=== PATIENT | female | born 1950 | race Caucasian/White ===

== ENCOUNTER 2017-04-09 10:06 | Observation (INO) ==
--- NOTE | 2017-04-09 10:26 | Emergency Department Note ---
Disposition Clinical Impression: Acute kidney injury Community acquired pneumonia Qualifiers: Laterality: unspecified laterality Qualified Code(s): J18.9 - Pneumonia, unspecified organism Disposition: Admitted As Inpatient Condition: Fair Referrals: NONE,PCP [Non-Partnered Physician] - Forms: ED Satisfaction Letter Time of Disposition: 13:10 General Adult HPI - General Chief complaint: ED Back Pain/Injury Stated complaint: back pain, pain with inspiration Time Seen by Provider: 04/09/17 10:13 Source: patient Limitations: no limitations Nursing Notes Reviewed: Yes Vital Signs Reviewed: Yes - History of Present Illness HPI Narrative: Nontoxic-appearing 67-year-old female presents for evaluation of "back pain". Patient states that she has endured 3 days of gradually worsening pain in the thoracic region that is made worse with expiration, inhalation, and movement. She denies any associated chest pain, shortness of breath, cough, hemoptysis, fevers, chills, rash, nausea, vomiting, abdominal pain, or diaphoresis. She denies any noticeable increased swelling of the lower extremities recently. She denies any known injury that could account for this pain. She rates her pain a 4 out of 10 on a 10 point scale and describes it as sharp in nature. Onset (ago): day(s) (3) Location: back Radiation: non-radiation Pain Scale: 4 Improves with: nothing Worsens with: movement, other (inspiration/exhalation) Associated symptoms: Denies: chest pain, cough, diaphoresis, fever/chills, nausea/vomiting, shortness of breath Treatments Prior to Arrival: none - Related Data Previous Rx's Medication Instructions Recorded Doxycycline 100 mg PO BID #20 capsule 07/22/15 Mupirocin [Bactroban Oint] 1 appl NS BID #1 tube 07/22/15 Allergies Allergy/AdvReac Type Severity Reaction Status Date / Time cephalexin [From Keflex] Allergy Rash Verified 04/09/17 10:12 Penicillins Allergy Rash Verified 04/09/17 10:12 Sulfa (Sulfonamide Allergy Rash Verified 04/09/17 10:12 Antibiotics) All systems ED: reviewed and negative except as stated. Constitutional: Denies: fever, chills, weakness, weight change Eyes: Denies: eye pain, eye discharge, vision change ENT ED: Denies: ear pain, throat pain, dental pain, hearing loss, epistaxis, congestion, dysphagia Cardiovascular: Denies: chest pain, palpitations, dyspnea on exertion, edema, syncope Respiratory: Denies: cough, dyspnea, wheezes, hemoptysis, stridor Gastrointestinal: Denies: abdominal pain, nausea, vomiting, diarrhea, constipation, hematemesis, melena, hematochezia Genitourinary: Denies: dysuria, frequency, hematuria, discharge Musculoskeletal: Reports: as per HPI, back pain (Made worse with breathing in and breathing out). Denies: neck pain, arthralgia, myalgia Integumentary: Denies: rash, abrasion, lesions Neurological: Denies: headache, weakness, numbness, paresthesias, confusion, abnormal gait, vertigo Psychiatric: Denies: anxiety, depression, suicidal thoughts, homicidal thoughts , auditory hallucinations, visual hallucinations Endocrine: Denies: fatigue Hematological/Lymphatic: Denies: easy bleeding, easy bruising Allergic/Immunologic: Denies: facial swelling, urticaria Past Medical History - Past Medical History Attestation: Yes The following information was validated with the patient. Source: patient, nursing notes reviewed Medical history: Reports: diabetes, hyperlipidemia, hypertension Psychiatric history: Reports: anxiety, depression INDUSTRIAL SAFETY ENGINEER history: Reports: no INDUSTRIAL SAFETY ENGINEER history - Social History Smoking Status: Never smoker Smokeless Tobacco Status: No Alcohol use: Reports: none Drug use: Reports: none Physical Exam - General Limitations: no limitations General appearance: alert, in no apparent distress - Head Head exam: atraumatic, normocephalic, normal inspection - Eye Eye exam: Present: normal appearance, PERRL, EOMI. Absent: nystagmus - ENT ENT exam: mucous membranes moist - Neck Neck exam: Present: normal inspection, full ROM, trachea midline - Chest Chest inspection: Present: normal inspection, symmetric chest wall rise. Absent : rash - Respiratory Respiratory exam: Present: normal lung sounds bilaterally. Absent: respiratory distress, wheezes, stridor, accessory muscle use, prolonged expiratory phase - Cardiovascular Cardiovascular exam: Present: regular rate, normal rhythm, normal heart sounds - Abdominal Exam Abdominal exam: Present: soft, Non-Tender, normal bowel sounds. Absent: mass, pulsatile mass - Extremities Exam Extremities exam: Present: normal inspection, full ROM. Absent: tenderness, pedal edema - Back Exam Back exam: Present: normal inspection, full ROM. Absent: tenderness, paraspinal tenderness, vertebral tenderness - Neurological Exam Neurological exam: Present: alert, oriented X3 - Psychiatric Psychiatric exam: Present: normal affect, normal mood - Skin Skin exam: Present: warm, dry, intact, normal color Course Course Narrative: 1110: I discussed this patient's case with radiology regarding her GFR and creatinine levels. The on-call radiologist states that he approves of the use of IV contrast as long as there is IV fluid hydration. I have discussed this patient's case with Dr. Serrano. Dr. Serrano has had a [id number] evaluation with patient and recommends admission to the hospitalist service for further treatment of pneumonia and her acute kidney injury. 1315: I spoke with Dr. Lewis of the hospitalist service. Dr. Lewis has accepted the patient for admission to the hospital service. Vital Signs Temperature 97.5 F L 04/09/17 10:10 Pulse Rate 111 04/09/17 10:10 Respiratory Rate 18 04/09/17 10:10 Blood Pressure 112/62 04/09/17 10:10 O2 Sat by Pulse Oximetry 96 04/09/17 10:10 Temperature 97.5 F L 04/09/17 10:10 Pulse Rate 112 04/09/17 11:15 Respiratory Rate 15 04/09/17 11:15 Blood Pressure 111/62 04/09/17 11:15 O2 Sat by Pulse Oximetry 97 04/09/17 11:15 Oxygen Delivery Oxygen Delivery Nasal Cannula Medical Decision Making - Medical Records Medical records reviewed: Yes I reviewed the patient's medical records. - Lab Data Lab results reviewed: Yes I reviewed the patient's lab results. Lab results narrative: Laboratory Last Values WBC 12.9 K/mcL (4.3-11.1) H 04/09/17 10:40 RBC 3.77 M/mcL (3.82-4.97) L 04/09/17 10:40 Hgb 10.9 g/dL (11.5-15.4) L 04/09/17 10:40 Hct 33.9 % (35.3-44.9) L 04/09/17 10:40 MCV 89.9 fL (83.0-100.0) 04/09/17 10:40 MCH 28.9 pg (28.0-33.3) 04/09/17 10:40 MCHC 32.2 g/dL (31.6-35.5) 04/09/17 10:40 RDW 12.8 % (11.5-14.5) 04/09/17 10:40 Plt Count 300 K/mcL (140-400) 04/09/17 10:40 MPV 9.4 fL (9.4-12.4) 04/09/17 10:40 Immature Gran % 0.4 % (0-4) 04/09/17 10:40 Seg Neutrophils % 84.3 % 04/09/17 10:40 Lymphocytes % 5.0 % 04/09/17 10:40 Monocytes % 9.9 % 04/09/17 10:40 Eosinophils % 0.2 % 04/09/17 10:40 Basophils % 0.2 % 04/09/17 10:40 Neutrophils # 10.9 K/mcL (1.6-8.9) H 04/09/17 10:40 Lymphocytes # 0.6 K/mcL (0.6-4.6) 04/09/17 10:40 Monocytes # 1.3 K/mcL (0.0-1.3) 04/09/17 10:40 Eosinophils # 0.0 K/mcL (0.0-0.6) 04/09/17 10:40 Basophils # 0.0 K/mcL (0.0-0.2) 04/09/17 10:40 PT 14.0 Seconds (9.4-12.1) H 04/09/17 10:40 INR 1.3 04/09/17 10:40 APTT 27.5 Seconds (26.0-36.0) 04/09/17 10:40 D-Dimer 2152 ng/mLFEU (0-500) H 04/09/17 10:40 Sodium 134 mEq/L (136-145) L 04/09/17 10:40 Potassium 4.1 mEq/L (3.5-4.5) 04/09/17 10:40 Chloride 96 mEq/L (98-109) L 04/09/17 10:40 Carbon Dioxide 28 mEq/L (19-29) 04/09/17 10:40 BUN 18 mg/dL (7-20) 04/09/17 10:40 Creatinine 1.32 mg/dL (0.57-1.11) H 04/09/17 10:40 Est GFR ( Amer) 49 (> 60) L 04/09/17 10:40 Est GFR (Non-Af Amer) 40 (> 60) L 04/09/17 10:40 BUN/Creatinine Ratio 14 (6-26) 04/09/17 10:40 Glucose 231 mg/dL (70-99) H 04/09/17 10:40 Calculated Osmolality 287 (280-300) 04/09/17 10:40 Calcium 9.9 mg/dL (8.6-10.8) 04/09/17 10:40 Troponin I 0.02 ng/mL (0-0.03) 04/09/17 10:40 Result diagrams: 04/09/17 10:40 04/09/17 10:40 Lab Results 04/09/17 04/09/17 04/09/17 Range/Units 10:40 10:40 10:40 WBC 12.9 H (4.3-11.1) K/mcL RBC 3.77 L (3.82-4.97) M/mcL Hgb 10.9 L (11.5-15.4) g/dL Hct 33.9 L (35.3-44.9) % MCV 89.9 (83.0-100.0) fL MCH 28.9 (28.0-33.3) pg MCHC 32.2 (31.6-35.5) g/dL RDW 12.8 (11.5-14.5) % Plt Count 300 (140-400) K/mcL MPV 9.4 (9.4-12.4) fL Immature Gran % 0.4 (0-4) % Seg Neutrophils % 84.3 % Lymphocytes % 5.0 % Monocytes % 9.9 % Eosinophils % 0.2 % Basophils % 0.2 % Neutrophils # 10.9 H (1.6-8.9) K/mcL Lymphocytes # 0.6 (0.6-4.6) K/mcL Monocytes # 1.3 (0.0-1.3) K/mcL Eosinophils # 0.0 (0.0-0.6) K/mcL Basophils # 0.0 (0.0-0.2) K/mcL PT (9.4-12.1) Seconds INR APTT (26.0-36.0) Seconds D-Dimer (0-500) ng/mLFEU Sodium 134 L (136-145) mEq/L Potassium 4.1 (3.5-4.5) mEq/L Chloride 96 L (98-109) mEq/L Carbon Dioxide 28 (19-29) mEq/L BUN 18 (7-20) mg/dL Creatinine 1.32 H (0.57-1.11) mg/dL Est GFR ( Amer) 49 L (> 60) Est GFR (Non-Af Amer) 40 L (> 60) BUN/Creatinine Ratio 14 (6-26) Glucose 231 H (70-99) mg/dL Calculated Osmolality 287 (280-300) Calcium 9.9 (8.6-10.8) mg/dL Troponin I 0.02 (0-0.03) ng/mL 04/09/17 Range/Units 10:40 WBC (4.3-11.1) K/mcL RBC (3.82-4.97) M/mcL Hgb (11.5-15.4) g/dL Hct (35.3-44.9) % MCV (83.0-100.0) fL MCH (28.0-33.3) pg MCHC (31.6-35.5) g/dL RDW (11.5-14.5) % Plt Count (140-400) K/mcL MPV (9.4-12.4) fL Immature Gran % (0-4) % Seg Neutrophils % % Lymphocytes % % Monocytes % % Eosinophils % % Basophils % % Neutrophils # (1.6-8.9) K/mcL Lymphocytes # (0.6-4.6) K/mcL Monocytes # (0.0-1.3) K/mcL Eosinophils # (0.0-0.6) K/mcL Basophils # (0.0-0.2) K/mcL PT 14.0 H (9.4-12.1) Seconds INR 1.3 APTT 27.5 (26.0-36.0) Seconds D-Dimer 2152 H (0-500) ng/mLFEU Sodium (136-145) mEq/L Potassium (3.5-4.5) mEq/L Chloride (98-109) mEq/L Carbon Dioxide (19-29) mEq/L BUN (7-20) mg/dL Creatinine (0.57-1.11) mg/dL Est GFR ( Amer) (> 60) Est GFR (Non-Af Amer) (> 60) BUN/Creatinine Ratio (6-26) Glucose (70-99) mg/dL Calculated Osmolality (280-300) Calcium (8.6-10.8) mg/dL Troponin I (0-0.03) ng/mL - Radiology Data Radiology results reviewed: Yes I reviewed the patient's radiology results. Chest X-Ray 04/09/17 10:19 IMPRESSION: Mild left basilar segmental atelectasis versus pneumonia. D/ / Livan Dorman MD / Livan Dorman MD Interpreting Provider: Livan Dorman MD Lumbar Spine X-Ray 04/09/17 10:19 IMPRESSION: Mild scoliosis/spondylosis. D/ / Livan Dorman MD / Livan Dorman MD Interpreting Provider: Livan Dorman MD Thoracic Spine X-Ray 04/09/17 10:19 IMPRESSION: Moderate scoliosis/mid thoracic spondylosis. D/ / Livan Dorman MD / Livan Dorman MD Interpreting Provider: Livan Dorman MD Chest CTA 04/09/17 10:45 IMPRESSION: No CT evidence of pulmonary embolism. Trace bilateral pleural effusions as well as right middle lobe and bilateral lower lobe airspace disease, atelectasis and/or pneumonia. Mild mediastinal and right hilar adenopathy is likely reactive. Follow-up to complete resolution is recommended. Wall thickening of the mid intrathoracic esophagus is suspected. Correlation for acute inflammation is recommended. Neoplasm should be excluded. D/ / Pippa Mcwilliams Cha, MD / Pippa Mcwilliams Cha, MD Interpreting Provider: Pippa Mcwilliams Cha, MD - EKG Data EKG #1 EKG attestation: Yes I reviewed and interpreted this EKG. EKG results narrative: EKG reviewed by Dr. Serrano as well. EKG shows a sinus tachycardia with possible anterior [place], probably old, at a rate of 117 bpm. ER interval 161, QRS duration 90, QT/QTc is 310/380. EKG shows normal: sinus rhythm Rate: tachycardia [place]/QRS: normal
[2017-04-09 10:47] LABS: Basophils % 0.2 %; Eosinophils % 0.2 %; Hematocrit 33.9 % (35.3-44.9); Hemoglobin 10.9 g/dL (11.5-15.4); Immature Granulocytes % 0.4 % (0-4); Lymphocytes # 0.6 K/mcL (0.6-4.6); Mean Corpuscular HGB Conc 32.2 g/dL (31.6-35.5); Mean Corpuscular Hemoglobin 28.9 pg (28.0-33.3); Mean Corpuscular Volume 89.9 fL (83.0-100.0); Mean Platelet Volume 9.4 fL (9.4-12.4); Monocytes # 1.3 K/mcL (0.0-1.3); Monocytes % 9.9 %; Neutrophils # 10.9 K/mcL (1.6-8.9); Platelet Count 300 K/mcL (140-400); Red Blood Count 3.77 M/mcL (3.82-4.97); Red Cell Distribution Width 12.8 % (11.5-14.5); Segmented Neutrophils % 84.3 %
[2017-04-09 10:58] LABS: Calcium 9.9 mg/dL (8.6-10.8); Potassium 4.1 mEq/L (3.5-4.5)
[2017-04-09 11:00] LABS: INR 1.3
[2017-04-09 11:03] LABS: Activated Partial Thrombo Time 27.5 Seconds (26.0-36.0)
[2017-04-09] MEDS ORDERED: 0.9 % Sodium Chloride 1,000 ML IVC ONE (11:16)
[2017-04-09] MEDS ORDERED: Levofloxacin 500 MG/100 ML 500 MG/100 ML BAG IVPB ONE (13:12)
[2017-04-09] MEDS ORDERED: 0.9 % Sodium Chloride 1,000 ML IVC SCH (13:15)
[2017-04-09] MEDS ORDERED: Levofloxacin 750 MG/150 ML 750 MG/150 ML BAG IVPB ONE (13:19)
--- NOTE | 2017-04-09 13:22 | Emergency Department Note ---
Disposition Clinical Impression: Acute kidney injury Community acquired pneumonia Qualifiers: Laterality: unspecified laterality Qualified Code(s): J18.9 - Pneumonia, unspecified organism Disposition: Admitted As Inpatient Condition: Fair Referrals: NONE,PCP [Non-Partnered Physician] - Forms: ED Satisfaction Letter General Adult HPI - General Chief complaint: ED Back Pain/Injury Stated complaint: back pain, pain with inspiration Time Seen by Provider: 04/09/17 10:13 Source: patient Limitations: no limitations - History of Present Illness Location: back Pain Scale: 4 Improves with: nothing Worsens with: movement, other (inspiration/exhalation) Associated symptoms: Denies: chest pain, cough, diaphoresis, fever/chills, nausea/vomiting, shortness of breath Treatments Prior to Arrival: none - Related Data Previous Rx's Medication Instructions Recorded Doxycycline 100 mg PO BID #20 capsule 07/22/15 Mupirocin [Bactroban Oint] 1 appl NS BID #1 tube 07/22/15 Allergies Allergy/AdvReac Type Severity Reaction Status Date / Time cephalexin [From Keflex] Allergy Rash Verified 04/09/17 10:12 Penicillins Allergy Rash Verified 04/09/17 10:12 Sulfa (Sulfonamide Allergy Rash Verified 04/09/17 10:12 Antibiotics) Constitutional: Denies: fever, chills, weakness, weight change Eyes: Denies: eye pain, eye discharge, vision change ENT ED: Denies: ear pain, throat pain, dental pain, hearing loss, epistaxis, congestion, dysphagia Cardiovascular: Denies: chest pain, palpitations, dyspnea on exertion, edema, syncope Respiratory: Denies: cough, dyspnea, wheezes, hemoptysis, stridor Gastrointestinal: Denies: abdominal pain, nausea, vomiting, diarrhea, constipation, hematemesis, melena, hematochezia Genitourinary: Denies: dysuria, frequency, hematuria, discharge Musculoskeletal: Reports: as per HPI, back pain (Made worse with breathing in and breathing out). Denies: neck pain, arthralgia, myalgia Integumentary: Denies: rash, abrasion, lesions Neurological: Denies: headache, weakness, numbness, paresthesias, confusion, abnormal gait, vertigo Psychiatric: Denies: anxiety, depression, suicidal thoughts, homicidal thoughts , auditory hallucinations, visual hallucinations Endocrine: Denies: fatigue Hematological/Lymphatic: Denies: easy bleeding, easy bruising Allergic/Immunologic: Denies: facial swelling, urticaria Past Medical History - Past Medical History Medical history: Reports: diabetes, hyperlipidemia, hypertension Psychiatric history: Reports: anxiety, depression 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 history - Social History Smoking Status: Never smoker Smokeless Tobacco Status: No Alcohol use: Reports: none Drug use: Reports: none Physical Exam - General Limitations: no limitations General appearance: alert, in no apparent distress Course Vital Signs Temperature 97.5 F L 04/09/17 10:10 Pulse Rate 111 04/09/17 10:10 Respiratory Rate 18 04/09/17 10:10 Blood Pressure 112/62 04/09/17 10:10 O2 Sat by Pulse Oximetry 96 04/09/17 10:10 Temperature 97.5 F L 04/09/17 10:10 Pulse Rate 112 04/09/17 11:15 Respiratory Rate 15 04/09/17 11:15 Blood Pressure 111/62 04/09/17 11:15 O2 Sat by Pulse Oximetry 97 04/09/17 11:15 Oxygen Delivery Oxygen Delivery Nasal Cannula Medical Decision Making - Lab Data Result diagrams: 04/09/17 10:40 04/09/17 10:40 Lab Results 04/09/17 04/09/17 04/09/17 Range/Units 10:40 10:40 10:40 WBC 12.9 H (4.3-11.1) K/mcL RBC 3.77 L (3.82-4.97) M/mcL Hgb 10.9 L (11.5-15.4) g/dL Hct 33.9 L (35.3-44.9) % MCV 89.9 (83.0-100.0) fL MCH 28.9 (28.0-33.3) pg MCHC 32.2 (31.6-35.5) g/dL RDW 12.8 (11.5-14.5) % Plt Count 300 (140-400) K/mcL MPV 9.4 (9.4-12.4) fL Immature Gran % 0.4 (0-4) % Seg Neutrophils % 84.3 % Lymphocytes % 5.0 % Monocytes % 9.9 % Eosinophils % 0.2 % Basophils % 0.2 % Neutrophils # 10.9 H (1.6-8.9) K/mcL Lymphocytes # 0.6 (0.6-4.6) K/mcL Monocytes # 1.3 (0.0-1.3) K/mcL Eosinophils # 0.0 (0.0-0.6) K/mcL Basophils # 0.0 (0.0-0.2) K/mcL PT (9.4-12.1) Seconds INR APTT (26.0-36.0) Seconds D-Dimer (0-500) ng/mLFEU Sodium 134 L (136-145) mEq/L Potassium 4.1 (3.5-4.5) mEq/L Chloride 96 L (98-109) mEq/L Carbon Dioxide 28 (19-29) mEq/L BUN 18 (7-20) mg/dL Creatinine 1.32 H (0.57-1.11) mg/dL Est GFR ( Amer) 49 L (> 60) Est GFR (Non-Af Amer) 40 L (> 60) BUN/Creatinine Ratio 14 (6-26) Glucose 231 H (70-99) mg/dL Calculated Osmolality 287 (280-300) Calcium 9.9 (8.6-10.8) mg/dL Troponin I 0.02 (0-0.03) ng/mL 04/09/17 Range/Units 10:40 WBC (4.3-11.1) K/mcL RBC (3.82-4.97) M/mcL Hgb (11.5-15.4) g/dL Hct (35.3-44.9) % MCV (83.0-100.0) fL MCH (28.0-33.3) pg MCHC (31.6-35.5) g/dL RDW (11.5-14.5) % Plt Count (140-400) K/mcL MPV (9.4-12.4) fL Immature Gran % (0-4) % Seg Neutrophils % % Lymphocytes % % Monocytes % % Eosinophils % % Basophils % % Neutrophils # (1.6-8.9) K/mcL Lymphocytes # (0.6-4.6) K/mcL Monocytes # (0.0-1.3) K/mcL Eosinophils # (0.0-0.6) K/mcL Basophils # (0.0-0.2) K/mcL PT 14.0 H (9.4-12.1) Seconds INR 1.3 APTT 27.5 (26.0-36.0) Seconds D-Dimer 2152 H (0-500) ng/mLFEU Sodium (136-145) mEq/L Potassium (3.5-4.5) mEq/L Chloride (98-109) mEq/L Carbon Dioxide (19-29) mEq/L BUN (7-20) mg/dL Creatinine (0.57-1.11) mg/dL Est GFR ( Amer) (> 60) Est GFR (Non-Af Amer) (> 60) BUN/Creatinine Ratio (6-26) Glucose (70-99) mg/dL Calculated Osmolality (280-300) Calcium (8.6-10.8) mg/dL Troponin I (0-0.03) ng/mL Attestation Statement - Attestation Attestation: For this encounter, I have reviewed the INDEPENDENT FREIGHT AGENT or PA documentation, treatment plan, and medical decision making; and I have had face to face time with this patient. [id number] time provided Patient presented with dyspnea and back pain. CT chest indicates pneumonia. Labs and EKG reviewed by me. Patient to be admitted to the medicine service
[2017-04-09] MEDS ORDERED: *HR* Metoprolol 5 MG/5 ML VIAL IVP PRN (13:56)
[2017-04-09] MEDS ORDERED: Naloxone 0.4 MG/ML INJ IVP PRN (14:07)
[2017-04-09] MEDS ORDERED: Albuterol 2.5 MG/3 ML NEBULIZER IH PRN (14:17)
--- NOTE | 2017-04-09 14:30 | Internal Med History&Physical ---
<Sanaz Marshall - Last Filed: 04/09/17 15:13> Date of Encounter: 04/09/17 Time of Encounter: 14:22 Assessment and Plan (1) Community acquired pneumonia Current visit: Yes Status: Acute 1 patient has been experiencing upper back pain on inspiration and expiration as well as a productive cough with thick white sputum. She has been afebrile CT of chest did reveal pneumonia. Blood cultures have been obtained we will obtain sputum culture 2 continue with Levaquin 3 bronchodilators as needed 4 oxygen as needed Qualifiers: Laterality: unspecified laterality Qualified Code(s): J18.9 - Pneumonia, unspecified organism (2) Acute kidney injury Current visit: Yes Status: Acute 1 patient's creatinine is 1.32. Her baseline is less than 1. We will hold hydrochlorothiazide and lisinopril M metformin for now. Resume once back to baseline 2. 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 Albert is a 67 year old female past medical history of diabetes hyperlipidemia hypertension. Patient has been experiencing 3 days of what she describes as upper back pain that is worse with expiration and inspiration and movement. She describes the pain as sharp 4 out of 10. She denies any chest pain shortness of breath fevers chills nausea vomiting abdominal pain or diaphoresis. She denies any urinary symptoms. She states that she does have a productive cough with thick white sputum. She presented to the ER a few bowel complaints. ER records lab work did reveal WBC 12.9 her creatinine was 1.3 to d- dimer was 2152 troponin was 0.02. CTA of chest was completed which did reveal a pneumonia. Her creatinine is elevated from baseline. Blood cultures were obtained and she was given Levaquin IV fluids. She has been admitted for further workup and evaluation. Presently she does not appear to be in respiratory distress. Her lung sounds have crackles in the bases bilaterally. Heart sounds are regular S1-S2 with no rubs clicks. Abdomen soft nontender no pedal edema noted. She is 98% on 2 L nasal cannula appears to be hemodynamically stable at this time. I reviewed this case with DR Lewis who agrees with plan Past Med Surg Social Fam HX - Past Medical History Medical history: diabetes, hyperlipidemia, hypertension Psychiatric history: anxiety, depression - Social History Smoking Status: Never smoker Smokeless Tobacco Status: No Alcohol use: none Drug use: none - Family History Mother Living Status: Still Living Hx Family Cardiac Disorders: Yes (HTN) Hx Family Endocrine Disorder: Yes (DM) Father Living Status: Still Living Hx Family Cardiac Disorders: Yes (HTN) Hx Family Endocrine Disorder: Yes (DM) Internal Medicine - H&P: Meds Aspirin [Lo-Dose Aspirin EC] 81 mg PO DAILY 04/09/17 [History] Calcium Carb, Citrate/Vit D3 [Calcium + D3 ER Tablet] 1 tab PO BID 04/09/17 [ History] Lisinopril [Zestril] 20 mg PO DAILY 04/09/17 [History] Loratadine [Allergy Relief] 10 mg PO DAILY 04/09/17 [History] Metformin HCl [Glucophage] 1,000 mg PO BID 04/09/17 [History] PARoxetine HCl [Paroxetine HCl] 20 mg PO DAILY 04/09/17 [History] Pioglitazone [Actos] 15 mg PO DAILY 04/09/17 [History] Simvastatin [Zocor] 20 mg PO DAILY 04/09/17 [History] Triamterene/Hydrochlorothiazid [Dyazide 37.5-25 Capsule] 1 cap PO DAILY [History] glyBURIDE [GlyBURIDE] 10 mg PO BID 04/09/17 [History] 3 Allergy/AdvReac Type Severity Reaction Status Date / Time cephalexin [From Keflex] Allergy Rash Verified 04/09/17 10:12 Penicillins Allergy Rash Verified 04/09/17 10:12 Sulfa (Sulfonamide Allergy Rash Verified 04/09/17 10:12 Antibiotics) All Systems PM: A 10-system review of systems was performed and is negative for pertinent findings except as documented above in the HPI. - Constitutional Constitutional: no chills, no fever(s), no night sweats - EENT Eyes: no change in vision, no discharge, no pain, no photophobia Nose, mouth and throat: no dysphagia, no nasal discharge, no neck pain, no sore throat - Cardiovascular Cardiovascular ROS IM: no chest pain, no diaphoresis, no dyspnea, no lightheadedness, no palpitations, no syncope - Respiratory Respiratory: cough, change in phlegm color - Gastrointestinal Gastrointestinal: no abdominal pain, no diarrhea, no hematemesis, no hematochezia, no melena, no nausea, no vomiting - Genitourinary Genitourinary: no change in urinary stream, no dysuria, no flank pain, no hematuria - Musculoskeletal Musculoskeletal ROS IM: back pain - Integumentary Integumentary IM: no rash, no unusual bruising - Neurological Neurological ROS: no confusion, no convulsions, no focal weakness, no numbness, no tingling, no tremor(s) - Hematologic/Lymphatic Hematologic/Lymphatic: no easy bruising - Constitutional Vitals: Temp Pulse Resp BP Pulse Ox 97.5 F L 102 18 124/60 99 04/09/17 10:10 04/09/17 13:30 04/09/17 14:01 04/09/17 14:01 04/09/17 13:30 General appearance: Present: A&O X 3 - Head Head exam: Present: atraumatic, normocephalic - Eye Eye exam: Present: PERRL, conjuntiva pink, sclera anicteric Pupils: Present: PERRL - Neck Neck exam general surgery: Present: supple, trachea midline. Absent: lymphadenopathy - Respiratory Respiratory exam: Present: rales. Absent: accessory muscle use, rhonchi, wheezes - Cardiovascular Cardiovascular exam: Present: RRR, +S1, +S2. Absent: diastolic murmur, gallop, rubs, systolic murmur - GI/Abdominal GI/Abdominal exam: Present: normal bowel sounds, soft, no peritoneal signs. Absent: distended, tenderness - Extremities Exam Extremities exam: Present: warm, radial pulses palpable and symmetrical. Absent : calf tenderness, cyanotic, pedal edema - Neurological Exam Neurological exam: Present: CN II-XII intact, oriented X3, no focal deficits. Absent: pronater drift, facial droop, speech deficit - Skin Skin exam: Present: dry, intact Internal Med - H&P Results - Labs CBC & Chem 7: 04/09/17 10:40 04/09/17 10:40 - EKG Data EKG shows normal: sinus rhythm Rate: tachycardia - EKG Data Prior EKG available for review: yes When compared to previous EKG: there is no significant change - Diagnostic Studies Other Images Additional comments: Chest X-Ray 04/09/17 10:19 IMPRESSION: Mild left basilar segmental atelectasis versus pneumonia. D/ / Livan Dorman MD / Livan Dorman MD Interpreting Provider: Livan Dorman MD Lumbar Spine X-Ray 04/09/17 10:19 IMPRESSION: Mild scoliosis/spondylosis. D/ / Livan Dorman MD / Livan Dorman MD Interpreting Provider: Livan Dorman MD Thoracic Spine X-Ray 04/09/17 10:19 IMPRESSION: Moderate scoliosis/mid thoracic spondylosis. D/ / Livan Dorman MD / Livan Dorman MD Interpreting Provider: Livan Dorman MD Chest CTA 04/09/17 10:45 IMPRESSION: No CT evidence of pulmonary embolism. Trace bilateral pleural effusions as well as right middle lobe and bilateral lower lobe airspace disease, atelectasis and/or pneumonia. Mild mediastinal and right hilar adenopathy is likely reactive. Follow-up to complete resolution is recommended. Wall thickening of the mid intrathoracic esophagus is suspected. Correlation for acute inflammation is recommended. Neoplasm should be excluded. D/ / Pippa Mcwilliams Cha, MD / Pippa Mcwilliams Cha, MD Interpreting Provider: Pippa Mcwilliams Cha, MD <Mendy Lewis - Last Filed: 04/09/17 18:20> Date of Encounter: 04/09/17 Internal Medicine - H&P: HPI History of present illness: Ms. Albert is a 67 year old female All Systems PM: A 10-system review of systems was performed and is negative for pertinent findings except as documented above in the HPI. - Constitutional Vitals: Temp Pulse Resp BP Pulse Ox 98.1 F 100 16 134/77 97 04/09/17 14:51 04/09/17 14:51 04/09/17 17:01 04/09/17 17:01 04/09/17 17:01 Internal Med - H&P Results - Labs CBC & Chem 7: 04/09/17 10:40 04/09/17 10:40 Labs: Cardiac Enzymes 04/09/17 Range/Units 16:29 Troponin I 0.01 (0-0.03) ng/mL - Attending Attestation Pt seen and examined. Admitted for CAP, SAV. Will continue IV fluids, IV abx. Case discussed with PAULINA Marshall, I agree with her documented findings, assessment, and plan.
[2017-04-09] MEDS: 0.9 % Sodium Chloride 1,000 ML IVC SCH (15:07)
[2017-04-09] MEDS ORDERED: D5% in Water 1,000 ML IVC PRN (15:12)
[2017-04-09] MEDS ORDERED: Dextrose Gel 15 GM PO PRN ×2 (15:12)
[2017-04-09] MEDS ORDERED: *HR* Dextrose 50 % in Water (Syg) 50 ML SYRINGE IVP PRN (15:12)
[2017-04-09] MEDS: Ipratropium/Albuterol Neb 3 ML IH SCH ×2 (16:01→22:24)
[2017-04-09] MEDS: Insulin LISPRO 300 UNITS/3 ML VIAL SQ SCH ×2 (17:39→20:58)
[2017-04-09] MEDS: Magnesium Sulfate 1 GM in D5% in Water 100 ML IVPB SCH ×2 (18:36→22:49)
[2017-04-09] MEDS: (Calcium Carb, Citrate/Vit D3 [Calcium + D3 Er Tablet) PO SCH (20:58)
[2017-04-10] MEDS: 0.9 % Sodium Chloride 1,000 ML IVC SCH (02:46)
[2017-04-10] MEDS: Magnesium Sulfate 1 GM in D5% in Water 100 ML IVPB SCH (02:46)
[2017-04-10] MEDS: Ipratropium/Albuterol Neb 3 ML IH SCH ×4 (04:02→22:05)
[2017-04-10 04:46] LABS: Basophils % 0.4 %; Eosinophils % 0.3 %; Hemoglobin 9.8 g/dL (11.5-15.4); Immature Granulocytes % 0.5 % (0-4); Lymphocytes # 0.7 K/mcL (0.6-4.6); Lymphocytes % 6.3 %; Mean Corpuscular HGB Conc 31.6 g/dL (31.6-35.5); Mean Corpuscular Hemoglobin 29.1 pg (28.0-33.3); Mean Platelet Volume 10.1 fL (9.4-12.4); Monocytes # 1.2 K/mcL (0.0-1.3); Monocytes % 11.3 %; Neutrophils # 8.7 K/mcL (1.6-8.9); Platelet Count 329 K/mcL (140-400); Red Blood Count 3.37 M/mcL (3.82-4.97); Red Cell Distribution Width 12.9 % (11.5-14.5); Segmented Neutrophils % 81.2 %
[2017-04-10 05:01] LABS: BUN/Creatinine Ratio 14 (6-26); Blood Urea Nitrogen 14 mg/dL (7-20); Calcium 9.3 mg/dL (8.6-10.8); Carbon Dioxide 24 mEq/L (19-29); Chloride 102 mEq/L (98-109); Glucose 74 mg/dL (70-99); Osmolality,Calculated 283 (280-300); Potassium 3.9 mEq/L (3.5-4.5); Sodium 137 mEq/L (136-145); eGFR For African Americans > 60 (> 60); eGFR For Non-African Americans 54 (> 60)
[2017-04-10] MEDS: *HR* Heparin 5,000 UNIT/ML VIAL SQ SCH ×2 (06:10→17:21)
[2017-04-10] MEDS: Insulin LISPRO 300 UNITS/3 ML VIAL SQ SCH ×4 (08:07→20:53)
[2017-04-10] MEDS: Aspirin Enteric Coated 81 MG Tablet PO SCH (08:10)
[2017-04-10] MEDS: Loratadine 10 MG TABLET PO SCH (08:10)
[2017-04-10] MEDS: (Calcium Carb, Citrate/Vit D3 [Calcium + D3 Er Tablet) PO SCH ×2 (08:11→21:06)
--- NOTE | 2017-04-10 11:04 | Internal Med Progress Note ---
Date of Encounter: 04/10/17 Time of Encounter: 08:30 - Assessment and plan (1) Community acquired pneumonia Current Visit: Yes Status: Acute Assessment and plan: CTA consistent with possible pneumonia to right middle lobe and bilateral lower lobes. Patient denies shortness of breath above for [place] currently states that her pain is controlled. Continue levofloxacin. She is tolerating room air. Of note, CTA also revealed mediastinal adenopathy likely reactive-we will have her follow up outpatient. CTA also revealed wall thickening of her esophagus-she has no signs of esophagitis on examination. She denies dysphasia , difficulty eating and is tolerating a regular diet. Follow up outpatient. X- rays of lumbar and thoracic spine unremarkable for acute processes in revealing her chronic scoliosis/spondylosis. We will observe her overnight for her new anemia, acute kidney injury and hypomagnesemia and likely discharge tomorrow pending clinical outcomes. ITS Impressions Chest X-Ray 04/09/17 10:19 IMPRESSION: Mild left basilar segmental atelectasis versus pneumonia. D/ / Livan Dorman MD / Livan Dorman MD Interpreting Provider: Livan Dorman MD Lumbar Spine X-Ray 04/09/17 10:19 IMPRESSION: Mild scoliosis/spondylosis. D/ / Livan Dorman MD / Livan Dorman MD Interpreting Provider: Livan Dorman MD Thoracic Spine X-Ray 04/09/17 10:19 IMPRESSION: Moderate scoliosis/mid thoracic spondylosis D/ / Livan Dorman MD / Livan Dorman MD Interpreting Provider: Livan Dorman MD Chest CTA 04/09/17 10:45 IMPRESSION: No CT evidence of pulmonary embolism. Trace bilateral pleural effusions as well as right middle lobe and bilateral lower lobe airspace disease, atelectasis and/or pneumonia. Mild mediastinal and right hilar adenopathy is likely reactive. Follow-up to complete resolution is recommended. Wall thickening of the mid intrathoracic esophagus is suspected. Correlation for acute inflammation is recommended. Neoplasm should be excluded. D/ / Pippa Mcwilliams Cha, MD / Pippa Mcwilliams Cha, MD Interpreting Provider: Pippa Mcwilliams Cha, MD Qualifiers: Laterality: unspecified laterality Qualified Code(s): J18.9 - Pneumonia, unspecified organism (2) Acute kidney injury Current Visit: Yes Status: Acute Assessment and plan: Improving and nearly resolved. Creatinine now normal. GFR 54. We will trend. (3) Lactic acidosis Current Visit: Yes Status: Acute Assessment and plan: Very minimal-Unclear etiology. On examination, she does not appear septic. Mild leukocytosis has resolved. Blood pressure is stable. Heart rate is elevated however she is receiving frequent breathing treatments. Patient is alert and oriented 3. 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 She states this is a chronic problem and she has refused surgery. (5) Anemia Current Visit: Yes Status: Acute Assessment and plan: Mild acute of unknown etiology. Patient denies hematochezia or melena. She denies dysuria. We will check iron, folate, B12 and trend. No signs of active bleeding. (6) Hypomagnesemia Current Visit: Yes Status: Acute Assessment and plan: Unclear etiology. Potassium is normal. Replacing, will recheck in the morning. (7) Elevated d-dimer Current Visit: Yes Status: Ruled-out Assessment and plan: CTA negative for PE (8) Diabetes mellitus Current Visit: No Status: Chronic Assessment and plan: Relatively well controlled with a recent A1c of 8.0%. Continue sliding scale while admitted. (9) HTN (hypertension) Current Visit: No Status: Chronic Assessment and plan: Controlled, we will continue to trend and adjust medications as indicated. Qualifiers: Hypertension type: essential hypertension Qualified Code(s): I10 - Essential (primary) hypertension (10) DVT prophylaxis Current Visit: Yes Status: Acute Assessment and plan: Subcutaneous heparin - Subjective Interval history: Patient seen and examined. On examination, patient sitting upright in her chair eating breakfast. Patient denies pain or shortness of breath. She states she is eating normally. Patient stating she is unable to lie flat which is a chronic problem for her because she states that her jaw goes out of place if she lays flat. - Constitutional Vitals: Temp Pulse Resp BP Pulse Ox 98.5 F 98 16 116/68 94 04/10/17 07:26 04/10/17 07:26 04/10/17 07:26 04/10/17 07:04/10/17 07:26 General appearance: Present: A&O X 3, pleasant, no acute distress, answers questions appropriately - Head Head exam: Present: atraumatic, normocephalic - Eye Eye exam: Present: PERRL, conjuntiva pink, sclera anicteric Pupils: Present: PERRL - Neck Neck exam general surgery: Present: supple, trachea midline. Absent: lymphadenopathy - Respiratory Respiratory exam: Present: CTAB. Absent: accessory muscle use, rales, respiratory distress, rhonchi, wheezes - Cardiovascular Cardiovascular exam: Present: RRR, +S1, +S2. Absent: diastolic murmur, gallop, rubs, systolic murmur - GI/Abdominal GI/Abdominal exam: Present: normal bowel sounds, soft, no peritoneal signs. Absent: distended, tenderness - Extremities Exam Extremities exam: Present: warm, radial pulses palpable and symmetrical. Absent : calf tenderness, cyanotic, pedal edema - Neurological Exam Neurological exam: Present: alert, CN II-XII intact, oriented X3, no focal deficits, strengths equal and symetr throughout. Absent: pronater drift, facial droop, speech deficit - Skin Skin exam: Present: dry, intact, pallor, warm Internal Medicine: Result - Labs CBC & Chem 7: 04/10/17 03:19 04/10/17 03:19 Labs: Short CBC 04/10/17 Range/Units 03:19 WBC 10.7 (4.3-11.1) K/mcL Hgb 9.8 L (11.5-15.4) g/dL Hct 31.0 L (35.3-44.9) % Plt Count 329 (140-400) K/mcL Neutrophils # 8.7 (1.6-8.9) K/mcL BMP 04/10/17 03:19 Sodium 137 Potassium 3.9 Chloride 102 Carbon Dioxide 24 BUN 14 Creatinine 1.02 Glucose 74 Calcium 9.3 Cardiac Enzymes 04/09/17 04/09/17 Range/Units 16:29 22:47 Troponin I 0.01 0.02 (0-0.03) ng/mL - ABG Interpretation ABG results: PT/INR, D-dimer PT 14.0 Seconds (9.4-12.1) H 04/09/17 10:40 D-Dimer 2152 ng/mLFEU (0-500) H 04/09/17 10:40 - VTE Documentation of Mechanical Device: Graduated compression elastic hosiery Consult Discharge Plan - Plan Referrals: Cathy Wilson MD [Primary Care Provider] -
[2017-04-10] MEDS ORDERED: *HR* Morphine 2 MG/ML SYRINGE IVP PRN (11:12)
[2017-04-10] MEDS ORDERED: Acetaminophen 325 MG TABLET PO PRN (11:12)
[2017-04-10] MEDS ORDERED: *HR* HYDROcodone/Acet 5/325 mg TABLET PO PRN (11:12)
[2017-04-11] MEDS: Ipratropium/Albuterol Neb 3 ML IH SCH ×2 (03:28→10:46)
[2017-04-11 05:02] LABS: Basophils # 0.1 K/mcL (0.0-0.2); Basophils % 0.6 %; Eosinophils # 0.1 K/mcL (0.0-0.6); Eosinophils % 0.9 %; Hematocrit 32.7 % (35.3-44.9); Hemoglobin 10.4 g/dL (11.5-15.4); Immature Granulocytes % 0.6 % (0-4); Immature Platelets 2.3 % (1.1-6.1); Lymphocytes # 0.9 K/mcL (0.6-4.6); Lymphocytes % 9.1 %; Mean Corpuscular HGB Conc 31.8 g/dL (31.6-35.5); Mean Corpuscular Hemoglobin 29.2 pg (28.0-33.3); Mean Corpuscular Volume 91.9 fL (83.0-100.0); Mean Platelet Volume 9.8 fL (9.4-12.4); Monocytes # 1.2 K/mcL (0.0-1.3); Monocytes % 11.7 %; Neutrophils # 7.9 K/mcL (1.6-8.9); Platelet Count 381 K/mcL (140-400); Red Blood Count 3.56 M/mcL (3.82-4.97); Segmented Neutrophils % 77.1 %
[2017-04-11 05:17] LABS: % Iron Saturation 5 % (15-50); BUN/Creatinine Ratio 18 (6-26); Blood Urea Nitrogen 18 mg/dL (7-20); Calcium 9.4 mg/dL (8.6-10.8); Carbon Dioxide 24 mEq/L (19-29); Chloride 103 mEq/L (98-109); Glucose 141 mg/dL (70-99); Iron 13 mcg/dL (50-170); Magnesium 1.8 mg/dL (1.6-2.6); Osmolality,Calculated 290 (280-300); Potassium 3.9 mEq/L (3.5-4.5); Sodium 138 mEq/L (136-145); Transferrin 183 mg/dL (180-382); eGFR For African Americans > 60 (> 60); eGFR For Non-African Americans 57 (> 60)
[2017-04-11 05:40] LABS: Ferritin 489 ng/ml (5-204)
[2017-04-11 05:54] LABS: Folate 16.1 ng/mL (7.0-31.4)
[2017-04-11] MEDS: *HR* Heparin 5,000 UNIT/ML VIAL SQ SCH (05:54)
[2017-04-11] MEDS: Loratadine 10 MG TABLET PO SCH (08:48)
[2017-04-11] MEDS: Aspirin Enteric Coated 81 MG Tablet PO SCH (08:48)
[2017-04-11] MEDS: (Calcium Carb, Citrate/Vit D3 [Calcium + D3 Er Tablet) PO SCH (08:49)
[2017-04-11] MEDS: Insulin LISPRO 300 UNITS/3 ML VIAL SQ SCH ×2 (08:49→12:12)
[2017-04-11 11:32] VITALS: BP 130/78
--- NOTE | 2017-04-11 12:40 | Discharge Summary ---
Date of Encounter: 04/11/17 Time of Encounter: 09:30 - Discharge Diagnosis (1) Community acquired pneumonia Priority: Primary Status: Acute Comments: CTA consistent with possible pneumonia to right middle lobe and bilateral lower lobes. Patient denies shortness of breath above her norm during this admission and tolerated room air. We will send with completed 5 day course of Levaquin. Qualifiers: Laterality: unspecified laterality Qualified Code(s): J18.9 - Pneumonia, unspecified organism (2) Acute kidney injury Priority: Primary Status: Resolved Comments: nearly resolved. Creatnine normal on day of discharge. Followup outpatient. 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 She states this is a chronic problem and she has refused surgery. (5) Anemia Priority: Primary Status: Acute Comments: Mild, acute, of unknown etiology. Patient denied hematochezia or melena. She denied dysuria. Folate, B12 normal. Iron stores low, started on supplementation with Colace as well. Educated on iron supplementation. Qualifiers: Anemia type: iron deficiency Iron deficiency anemia type: unspecified iron deficiency Qualified Code(s): D50.9 - Iron deficiency anemia, unspecified (6) Hypomagnesemia Priority: Primary Status: Resolved (7) Elevated d-dimer Priority: Primary Status: Ruled-out Comments: CTA negative for PE (8) Diabetes mellitus Priority: Secondary Status: Chronic Comments: Relatively well controlled with a recent A1c of 8.0%. 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 Qualifiers: Hypertension type: essential hypertension Qualified Code(s): I10 - Essential (primary) hypertension (10) DVT prophylaxis Priority: Primary Status: Acute Comments: Subcutaneous heparin while admitted - Discharge Medications Prescriptions: Docusate [Colace] 100 mg PO BID PRN #60 capsule PRN Reason: Constipation Ferrous Sulfate 325 mg PO BIDWM #60 tab levoFLOXacin [Levofloxacin] 750 mg PO DAILY #3 tablet Home Medications: Aspirin [Lo-Dose Aspirin EC] 81 mg PO DAILY 04/09/17 [History] Calcium Carb, Citrate/Vit D3 [Calcium + D3 ER Tablet] 1 tab PO BID 04/09/17 [ History] Lisinopril [Zestril] 20 mg PO DAILY 04/09/17 [History] Loratadine [Allergy Relief] 10 mg PO DAILY 04/09/17 [History] Metformin HCl [Glucophage] 1,000 mg PO BID 04/09/17 [History] PARoxetine HCl [Paroxetine HCl] 20 mg PO DAILY 04/09/17 [History] Pioglitazone [Actos] 15 mg PO DAILY 04/09/17 [History] Simvastatin [Zocor] 20 mg PO DAILY 04/09/17 [History] Triamterene/Hydrochlorothiazid [Dyazide 37.5-25 Capsule] 1 cap PO DAILY [History] glyBURIDE [GlyBURIDE] 10 mg PO BID 04/09/17 [History] Docusate [Colace] 100 mg PO BID PRN #60 capsule 04/11/17 [Rx] Ferrous Sulfate 325 mg PO BIDWM #60 tab 04/11/17 [Rx] levoFLOXacin [Levofloxacin] 750 mg PO DAILY #3 tablet 04/11/17 [Rx] Allergies/Adverse Reactions: 3 Allergy/AdvReac Type Severity Reaction Status Date / Time cephalexin [From Keflex] Allergy Rash Verified 04/09/17 10:12 Penicillins Allergy Rash Verified 04/09/17 10:12 Sulfa (Sulfonamide Allergy Rash Verified 04/09/17 10:12 Antibiotics) Date of admission: 04/09/17 13:31 Primary care physician: Cathy Wilson Discharging clinician: Ethel Fraser Anticipated date of discharge: 04/11/17 - Patient Status Disposition: Home, Self-Care Condition: Fair Functional capacity at discharge: independent ambulation Overall status at discharge: patient is back to baseline - Discharge Instructions Follow Up With: Cathy Wilson MD [Primary Care Provider] - 04/19/17 10:45 am Additional Instructions: Follow-up with primary care provider as scheduled - Diet and Activity Activity: increase activity as tolerated Diet: diabetic diet, low fat, low cholesterol, low salt diet Hospital course: Ms. Albert is a 67 year old female with past medical history of diabetes, hyperlipidemia, hypertension. Patient was admitted to the emergency department chief complaint of 3 days of upper back pain worsened with inspiration and expiration and worsened with movement. Patient describing the pain as sharp. She denied chest pain or shortness of breath. She denied fevers, chills, nausea vomiting or abdominal pain. She denies urinary symptoms. She did endorse a productive cough with thick white sputum. Workup in the emergency department revealing acute kidney injury, mild lactic acidosis, hypomagnesemia, mild anemia, and imaging on the chest x-ray consistent with possible left lower lobe pneumonia. Patient was admitted to the hospitalist service for further evaluation and management. Elevated d-dimer was ruled out with a negative CTA. CTA did however reveal possible pneumonia to the right middle lobe and bilateral lower lobes. Patient denies shortness of breath above her norm during this admission. Pain was controlled. She was treated with Levaquin while admitted. She tolerated room air while admitted. Of note, CTA also revealed mediastinal adenopathy likely reactive-we will have her follow up outpatient. CTA also revealed wall thickening of her esophagus-she had no signs of esophagitis on examination. She denied dysphasia, difficulty eating and tolerated a regular diet. X-rays of lumbar and thoracic spine unremarkable for acute processes in revealing her chronic scoliosis/spondylosis. Acute kidney injury, lactic acidosis, hypomagnesemia all resolved. Patient had mild anemia which is a new onset for her. She remained stable throughout this admission. Folate and B12 levels were normal, iron was low and she was started on supplementation. She was discharged home in stable condition with close outpatient follow-up recommended. ITS Impressions Chest X-Ray 04/09/17 10:19 IMPRESSION: Mild left basilar segmental atelectasis versus pneumonia. D/ / Livan Dorman MD / Livan Dorman MD Interpreting Provider: Livan Dorman MD Lumbar Spine X-Ray 04/09/17 10:19 IMPRESSION: Mild scoliosis/spondylosis. D/ / Livan Dorman MD / Livan Dorman MD Interpreting Provider: Livan Dorman MD Thoracic Spine X-Ray 04/09/17 10:19 IMPRESSION: Moderate scoliosis/mid thoracic spondylosis D/ / Livan Dorman MD / Livan Dorman MD Interpreting Provider: Livan Dorman MD Chest CTA 04/09/17 10:45 IMPRESSION: No CT evidence of pulmonary embolism. Trace bilateral pleural effusions as well as right middle lobe and bilateral lower lobe airspace disease, atelectasis and/or pneumonia. Mild mediastinal and right hilar adenopathy is likely reactive. Follow-up to complete resolution is recommended. Wall thickening of the mid intrathoracic esophagus is suspected. Correlation for acute inflammation is recommended. Neoplasm should be excluded. D/ / Pippa Mcwilliams Cha, MD / Pippa Mcwilliams Cha, MD Interpreting Provider: Pippa Mcwilliams Cha, MD - Time Spent with Patient Total time spent providing and/or coordinating discharge services: - Constitutional Vitals: Temp Pulse Resp BP Pulse Ox 98.5 F 103 15 130/78 93 04/11/17 11:30 04/11/17 11:30 04/11/17 11:30 04/11/17 11:30 04/11/17 11:30 General appearance: Present: A&O X 3, pleasant, no acute distress, answers questions appropriately - Head Head exam: Present: atraumatic, normocephalic - Eye Eye exam: Present: PERRL, conjuntiva pink, sclera anicteric Pupils: Present: PERRL - Neck Neck exam general surgery: Present: supple, trachea midline. Absent: lymphadenopathy - Respiratory Respiratory exam: Present: decreased breath sounds. Absent: accessory muscle use, rales, respiratory distress, rhonchi, wheezes - Cardiovascular Cardiovascular exam: Present: RRR, +S1, +S2. Absent: diastolic murmur, gallop, rubs, systolic murmur - GI/Abdominal GI/Abdominal exam: Present: normal bowel sounds, soft, no peritoneal signs. Absent: distended, tenderness - Extremities Exam Extremities exam: Present: warm, radial pulses palpable and symmetrical. Absent : calf tenderness, cyanotic, pedal edema - Neurological Exam Neurological exam: Present: alert, CN II-XII intact, oriented X3, no focal deficits, strengths equal and symetr throughout. Absent: pronater drift, facial droop, speech deficit - Skin Skin exam: Present: dry, intact, normal color, warm - VTE Documentation of Mechanical Device: Graduated compression elastic hosiery
[2017-04-11] MEDS ORDERED: Levofloxacin 750 MG/150 ML 750 MG/150 ML BAG IVPB SCH (13:00)
--- NOTE | 2017-04-11 17:33 | Electrocardiograph Report ---
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
== END 2017-04-11 14:19 | disposition home or self-care (01) ==
LOC: 3BNU 10:06 → EMEROO 10:06 → 3BNU 14:30
PROVIDERS: ADMIT Internal Medicine; ATTEND Nurse Practitioner Family

== ENCOUNTER 2019-08-23 09:10 | Observation (INO) ==
[2019-08-23] MEDS ORDERED: Ipratropium/Albuterol Neb 3 ML IH ONE (09:22)
[2019-08-23] MEDS ORDERED: Doxycycline 100 MG CAPSULE PO ONE (09:23)
[2019-08-23] MEDS ORDERED: 0.9 % Sodium Chloride 1,000 ML IVC ONE ×2 (09:23→10:30)
[2019-08-23 09:52] LABS: Basophils % 0.3 %; Hematocrit 38.3 % (35.3-44.9); Hemoglobin 12.9 g/dL (11.5-15.4); Immature Granulocytes % 0.8 % (0-4); Lymphocytes # 0.5 K/mcL (0.6-4.6); Mean Corpuscular HGB Conc 33.7 g/dL (31.6-35.5); Mean Corpuscular Volume 89.1 fL (83.0-100.0); Mean Platelet Volume 9.5 fL (9.4-12.4); Monocytes # 1.3 K/mcL (0.0-1.3); Monocytes % 14.7 %; Neutrophils # 6.9 K/mcL (1.6-8.9); Platelet Count 292 K/mcL (140-400); Red Cell Distribution Width 12.8 % (11.5-14.5); Segmented Neutrophils % 78.2 %; White Blood Count 8.9 K/mcL (4.3-11.1)
[2019-08-23 10:09] LABS: BUN/Creatinine Ratio 16 (6-26); Blood Urea Nitrogen 15 mg/dL (8-23); Calcium 8.6 mg/dL (8.6-10.3); Carbon Dioxide 25 mEq/L (23-29); Chloride 92 mEq/L (98-107); Glucose 281 mg/dL (70-105); Osmolality,Calculated 279 (280-300); Sodium 129 mEq/L (136-145); eGFR For African Americans > 60 (> 60); eGFR For Non-African Americans 59 (> 60)
[2019-08-23] MEDS ORDERED: Acetaminophen 325 MG TABLET PO PRN (11:17)
[2019-08-23] MEDS ORDERED: Naloxone 0.4 MG/ML INJ IVP PRN (11:17)
[2019-08-23] MEDS ORDERED: MethylPREDNISolone 40 MG/ML VIAL IVP SCH (11:19)
[2019-08-23] MEDS ORDERED: Isovue-370 500 ML BOTTLE IVP ONE (11:20)
[2019-08-23] MEDS ORDERED: *HR* Dextrose 50 % in Water (Syg) 50 ML SYRINGE IVP PRN (11:23)
[2019-08-23] MEDS ORDERED: Dextrose Gel 15 GM/37.5 ML TUBE PO PRN ×2 (11:23)
[2019-08-23] MEDS ORDERED: D5% in Water 1,000 ML IVC PRN (11:23)
[2019-08-23] MEDS: Ipratropium/Albuterol Neb 3 ML IH SCH ×3 (11:34→19:52)
[2019-08-23 11:40] LABS: INR 1.1; Prothrombin Time 12.8 Seconds (9.4-12.1)
[2019-08-23 11:42] LABS: Activated Partial Thrombo Time 33.9 Seconds (26.0-36.0)
[2019-08-23] MEDS: *HR* Heparin 5,000 UNIT/ML VIAL SQ SCH ×2 (14:56→21:39)
[2019-08-23] MEDS: Insulin LISPRO 300 UNITS/3 ML VIAL SQ SCH ×2 (14:56→17:39)
[2019-08-23] MEDS: MethylPREDNISolone 40 MG/ML VIAL IVP SCH (14:56)
[2019-08-23 15:32] LABS: ABG Base Excess 4 mEq/L (-2 to 3); ABG HCO3 29 mEq/L (21-27); ABG Oxygen Saturation 90 % (95-98); ABG PCO2 42 mmHg (35-45); ABG PH 7.44 pH Units (7.32-7.45); ABG PO2 57 mmHg (85-104); ABG TCO2 30 mEq/L (20-26)
[2019-08-23] MEDS: Doxycycline 100 MG in 0.9 % Sodium Chloride Mini Bag 100 ML IVPB SCH (18:43)
[2019-08-23 19:07] LABS: Bilirubin,Urine Negative (Negative); Blood,Urine Large (Negative); Clarity,Urine Clear (Clear); Color,Urine Yellow (Yellow); Glucose,Urine (UA) >=1000 mg/dL (Normal); Ketones,Urine Negative (Negative); Leukocyte Esterase,Urine Negative (Negative); Nitrite,Urine Negative (Negative); PH,Urine 5.5 pH Units (5.0-8.0); Protein,Urine 100 mg/dL (Neg-Trace); Specific Gravity,Urine 1.029 (1.010-1.025); Urobilinogen,Urine Normal (Normal)
[2019-08-23 19:10] LABS: Hyaline Casts,Urine None Seen per lpf (None-Few); Squamous Epithelial Cell,Urine Moderate per lpf (None-Few)
[2019-08-23 20:42] LABS: Adenovirus Not Detected (Not Detect); Coronavirus 229E Not Detected (Not Detect); Coronavirus HKU1 Not Detected (Not Detect); Coronavirus NL63 Not Detected (Not Detect); Coronavirus OC43 Not Detected (Not Detect); Human Metapneumovirus Not Detected (Not Detect); Human Rhinovirus/Enterovirus Not Detected (Not Detect)
[2019-08-23 20:45] LABS: Bordetella Pertussis Not Detected (Not Detect); Chlamydophila pneumoniae Not Detected (Not Detect); Influenza A Subtype 2009 H1 DETECTED (Not Detect); Influenza B Not Detected (Not Detect); Mycoplasma pneumoniae Not Detected (Not Detect); Parainfluenza Virus 1 Not Detected (Not Detect); Parainfluenza Virus 2 Not Detected (Not Detect); Parainfluenza Virus 3 Not Detected (Not Detect); Parainfluenza Virus 4 Not Detected (Not Detect); Respiratory Syncytial Virus Not Detected (Not Detect)
[2019-08-23 21:05] LABS: Bacteria,Urine Few per hpf (None-Few); Yeast,Urine Many per hpf (None Seen)
[2019-08-23 21:34] LABS: Mucus,Urine Moderate per lpf (Few)
[2019-08-23] MEDS: Insulin DETEMIR 100 UNIT/ML X5UNITS SQ SCH (22:20)
[2019-08-24] MEDS: Ipratropium/Albuterol Neb 3 ML IH SCH ×4 (00:03→11:59)
[2019-08-24] MEDS: MethylPREDNISolone 40 MG/ML VIAL IVP SCH (02:37)
[2019-08-24] MEDS: *HR* Heparin 5,000 UNIT/ML VIAL SQ SCH ×2 (05:20→14:51)
[2019-08-24] MEDS: Doxycycline 100 MG in 0.9 % Sodium Chloride Mini Bag 100 ML IVPB SCH (05:20)
[2019-08-24 05:47] LABS: Basophils % 0.2 %; Immature Granulocytes % 0.7 % (0-4); Lymphocytes # 0.6 K/mcL (0.6-4.6); Lymphocytes % 11.4 %; Mean Corpuscular HGB Conc 32.5 g/dL (31.6-35.5); Mean Corpuscular Hemoglobin 30.1 pg (28.0-33.3); Mean Corpuscular Volume 92.6 fL (83.0-100.0); Mean Platelet Volume 9.8 fL (9.4-12.4); Monocytes # 0.4 K/mcL (0.0-1.3); Monocytes % 6.9 %; Neutrophils # 4.6 K/mcL (1.6-8.9); Platelet Count 257 K/mcL (140-400); Red Blood Count 4.32 M/mcL (3.82-4.97); Red Cell Distribution Width 12.7 % (11.5-14.5); Segmented Neutrophils % 80.8 %; White Blood Count 5.6 K/mcL (4.3-11.1)
[2019-08-24 06:24] LABS: Alanine Aminotransferase 14 Units/L (7-52); Albumin 3.7 g/dL (3.5-5.7); Albumin/Globulin Ratio 1.3 (1.1-2.2); Alkaline Phosphatase 48 Units/L (34-104); Aspartate Amino Transferase 30 Units/L (13-39); BUN/Creatinine Ratio 19 (6-26); Bilirubin,Total 0.2 mg/dL (0.3-1.0); Blood Urea Nitrogen 18 mg/dL (8-23); Calcium 8.7 mg/dL (8.6-10.3); Carbon Dioxide 21 mEq/L (23-29); Chloride 99 mEq/L (98-107); Chol/HDL Ratio 3.3 (0-4.9); Cholesterol 137 mg/dL (< 200); Globulin 2.9 g/dL (2.4-3.5); Glucose 233 mg/dL (70-105); HDL Cholesterol 42 mg/dL (40-59); LDL Cholesterol,Calculated 79 mg/dL (0-99); Magnesium 1.5 mg/dL (1.6-2.6); Osmolality,Calculated 293 (280-300); Phosphorous 3.1 mg/dL (2.7-4.5); Potassium 4.1 mEq/L (3.5-5.1); Sodium 137 mEq/L (136-145); Total Protein 6.6 g/dL (6.4-8.9); Triglycerides 79 mg/dL (< 150); eGFR For African Americans > 60 (> 60); eGFR For Non-African Americans 60 (> 60)
[2019-08-24] MEDS: Insulin LISPRO 300 UNITS/3 ML VIAL SQ SCH ×2 (08:12→11:56)
[2019-08-24] MEDS: Insulin DETEMIR 100 UNIT/ML X5UNITS SQ SCH (08:13)
[2019-08-24] MEDS ORDERED: Aspirin Enteric Coated 81 MG Tablet PO SCH (09:00)
[2019-08-24 11:11] VITALS: BP 151/86
== END 2019-08-24 16:21 | disposition home or self-care (01) ==
LOC: EMEROOARM 09:10 → CDU 09:10 → SUATTDRO 11:32 → CDU 12:10 → 3ANU 18:09
PROVIDERS: ADMIT Internal Medicine; ATTEND Internal Medicine